=== PATIENT | female | born 1950 | race Caucasian/White ===

== ENCOUNTER 2020-09-02 15:08 | Emergency (ER) | payer OTHER, MEDICAID ==
[~2020-09-02] VITALS: Ht 152.4 cm; Wt 60.3 kg
[2020-09-02 15:09] VITALS: Ht 152.4 cm; Wt 60.3 kg
[2020-09-02 18:24] VITALS: BP 143/72
== END 2020-09-02 18:24 | disposition home or self-care (01) ==
LOC: ED 15:08
DX: U07.1 COVID-19 (principal); J12.89 Other viral pneumonia